=== PATIENT | female | born 1970 | race Caucasian/White ===

== ENCOUNTER 2016-09-08 15:43 | Emergency (ER) | END 2016-09-08 20:54 | disposition home or self-care (01) | DX: O20.0 Threatened abortion (principal); Z3A.01 Less than 8 weeks gestation of pregnancy; Z87.891 Personal history of nicotine dependence ==

== ENCOUNTER 2016-09-18 18:00 | Emergency (ER) | payer MEDICAID ==
[~2016-09-18] VITALS: Wt 80.0 kg
[~2016-09-18 18:00] MED LIST: ACET500C5 PO; CALC-649 PO; FERR27TA PO; LAMO150T15 PO; PREN1TAB49 PO
--- NOTE | 2016-09-18 20:08 | RADRPT ---
PROCEDURE: US OB. CLINICAL INDICATION: Vaginal bleeding TECHNIQUE: Transabdominal and transvaginal views of the pelvis are available for review. COMPARISON: 09/08/2016 FINDINGS: [place]-rump length:1.1 cm Mean gestational sac diameter is 1.8 cm. heart rate:None Ultrasound estimated gestational age:7 weeks and 0-day The right ovary measures 4 x 3.1 x 3.4 cm in size in the left ovary measures 2.4 x 1.9 x 2.4 cm in s ize. A complex cystic structure in the right ovary is seen measuring 3.1 cm in maximal diameter and is consistent with a hemorrhagic cyst which is once again seen. No ovarian or adnexal mass lesion is seen. There is no free fluid. IMPRESSION: 1. Single intrauterine without evidence of heart rate, the findings of which are wo rrisome for demise. Correlation with serial beta HCG levels is suggested as well as a short i nterval follow-up. 2. Complex right ovarian cystic structure consistent with a hemorrhagic cyst again seen. RPTAT: HPNM Physician Domingo Date Time Electronically viewed and signed by Physician Domingo on 09/18/2016 20:08 /
[2016-09-18 20:28] LABS: ADD UMIC YES; URINE BILIRUBIN (Dip) NEGATIVE (NEGATIVE); URINE BLOOD (Dip) 1+ (NEGATIVE); URINE COLOR LT. YELLOW (YELLOW); URINE GLUCOSE (Dip) NEGATIVE (NEGATIVE); URINE KETONES (Dip) NEGATIVE (NEGATIVE); URINE LEUKOCYTE ESTERASE (Dip) NEGATIVE (NEGATIVE); URINE NITRITE (Dip) NEGATIVE (NEGATIVE); URINE TOTAL PROTEIN (Dip) NEGATIVE (NEGATIVE); URINE UROBILINOGEN (Dip) 0.2 E.U./dL (0.1-1.0)
[2016-09-18 20:30] LABS: BASOPHIL # 0.1 10^3/ul (0.0-0.1); BASOPHILS % 0.5 % (0.0-2.0); EOSINOPHILS # 0.2 10^3/ul (0.0-0.5); EOSINOPHILS % 1.5 % (0.0-7.0); HEMATOCRIT 37.6 % (37.0-47.0); HEMOGLOBIN 12.3 g/dl (12.0-16.0); LYMPHOCYTES # 4.5 10^3/ul (0.8-2.9); LYMPHOCYTES % 31.4 % (15.0-51.0); MEAN CORPUSCULAR HGB CONC 32.7 g/dl (32.0-37.0); MEAN CORPUSCULAR VOLUME 76.6 fl (82.0-101.0); MEAN PLATELET VOLUME 9.1 fl (7.4-10.4); MONOCYTE # 0.9 10^3/ul (0.3-0.9); MONOCYTES % 6.3 % (0.0-11.0); NEUTROPHIL # 8.6 10^3/ul (1.6-7.5); NEUTROPHILS % 60.3 % (39.0-77.0); PLATELET COUNT 332 10^3/UL (140-440); RED BLOOD COUNT 4.91 10^6/ul (4.20-5.40); RED CELL DISTRIBUTION WIDTH 20.8 % (11.5-14.5); UNCORRECTED WBC 14.2 10^3/ul (4.8-10.8); WHITE BLOOD COUNT 14.2 10^3/ul (4.8-10.8)
[2016-09-18 20:31] LABS: CONDITION 1; LH ANALYZER COMMENTS 1
[2016-09-18 20:42] LABS: SQUAMOUS EPITHELIAL CELL,UR FEW
[2016-09-18 22:43] VITALS: BP 132/68; PULSE 77; RESP 18; TEMP 98.6
--- NOTE | 2016-09-18 22:55 | ERD ---
ER Documentation Chief Complaint Date/Time DATE: 09/18/16 TIME: 22:51 Chief Complaint VAG BLEEDING FOR 5 DAYS. MILD ABD PAIN. SCANT AMOUNT OF BLEEDING.NO DYSURIA HPI 45-year-old female with no significant past medical history is a presents to the ED complaining of hematuria that started 5 days ago. States that she went to her [facility] today, Dr. Swati Aguiar. Reports that there was no heart tones noted on the ultrasound. Patient was sent here for further evaluation. Patient was seen here previously on September 05 1316 for similar symptoms of slight vaginal bleeding. Patient denies any headache, loss of consciousness, dizziness, blurred vision, dysuria, urgency, frequency, flank pain, pelvic pain, nausea, vomiting, chest pain or shortness of breath. Patient 's last menses was on July 17, 2016. ROS All systems reviewed and are negative except as per history of present illness. Medications Home Meds Active Scripts Acetaminophen* (Tylophen*) 500 Mg Capsule, 1 CAP PO Q6H Y for PAIN AND OR ELEVATED TEMP, #20 CAP Prov:JC DINH 09/08/16 Reported Medications Lamotrigine* (Lamictal*) 150 Mg Tablet, 150 MG PO DAILY 05/04/11 Calcium Carbonate (Calcium) 1 Tab Tablet, 1 TAB PO DAILY 04/05/11 Ferrous Sulfate (Iron) 1 Tab Tablet, 1 TAB PO BID 04/05/11 Vits W-Ca,Fe,Fa(<1MG) () 1 Tab Tablet, 1 TAB PO 04/05/11 Allergies Allergies: Coded Allergies: No Known Allergy (Verified Allergy, 04/05/11) PMhx/Soc History of Surgery: No Anesthesia Reaction: No Hx Neurological Disorder: No Hx Respiratory Disorders: No Hx Cardiac Disorders: No Hx Psychiatric Problems: No Hx Miscellaneous Medical Probl: No (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 In no acute distress. Head: Atraumatic, normocephalic Eyes: Normal Conjunctiva without injection. No purulent discharge. ENT: Normal external ear, nose. Moist oropharynx without tonsillar exudates. Non -erythematous pharynx. Uvula midline. No drooling. No trismus. Neck: No cervical midline tenderness. Full range of motion. No meningismus. No cervical lymphadenopathy. No JVD. Resp: Clear to auscultation bilaterally. No wheezing, rhonchi, rales, or crackles. No accessory muscle use. No retractions. Cardio: Regular rate and rhythm. No murmurs, rubs or gallops. Abd: Soft, nontender to palpation, non distended. Normal bowel sounds. No palpable masses. No rebound tenderness. No guarding. Negative McBurney's point. Negative psoas sign. Negative obturator sign. Skin: No petechiae or rashes Back: No midline tenderness. No CVA tenderness. Ext: No cyanosis, or edema. Neur: Awake and alert. Normal gait. Normal coordination. Psych: Normal Mood and Affect Result Diagram: 09/18/162004 Results 24 hrs Laboratory Tests Test 09/18/16 20:05 09/18/16 20:12 Basophils # 0.110^3/ul Basophils % 0.5% Beta HCG, Quantitative 40475.0mIU/ml Blood Morphology Comment Eosinophils # 0.210^3/ul Eosinophils % 1.5% Hematocrit 37.6% Hemoglobin 12.3g/dl Lymphocytes # 4.510^3/ul Lymphocytes % 31.4% Mean Corpuscular Hemoglobin 25.0pg Mean Corpuscular Hemoglobin Concent 32.7g/dl Mean Corpuscular Volume 76.6fl Mean Platelet Volume 9.1fl Monocytes # 0.910^3/ul Monocytes % 6.3% Neutrophils # 8.610^3/ul Neutrophils % 60.3% Nucleated Red Blood Cells # 0.010^3/ul Nucleated Red Blood Cells % 0.0/100WBC Platelet Count 12341^3/UL Red Blood Count 4.9110^6/ul Red Cell Distribution Width 20.8% White Blood Count 14.210^3/ul Urine Bilirubin NEGATIVE Urine Clarity CLEAR Urine Color LT. YELLOW Urine Glucose NEGATIVE% Urine Hemoglobin 1+ Urine Ketones NEGATIVE Urine Leukocyte Esterase NEGATIVE Urine Microscopic RBC 2-5/HPF Urine Microscopic WBC 2-5/HPF Urine Nitrite NEGATIVE Urine Specific Mcallister 1.020 Urine Squamous Epithelial Cells FEW Urine Total Protein NEGATIVE Urine Urobilinogen 0.2 E.U./dL Urine pH 6.5 Procedures/MDM 45-year-old female with no significant past Julio history is a A0 presents to the ED complaining of hematuria and slight vaginal spotting. Patient is afebrile and nontoxic-appearing. Patient has normal vital signs. An ultrasound, beta-hCG, CBC, type and RH, UA was ordered to evaluate patient. CBC: No evidence of severe infection or anemia Urine: No elevation in nitrites, leukocyte esterase, hematuria. No evidence of UTI Rh: B positive. No indication for Rhogam at this time. beta Hc PROCEDURE: US OB. CLINICAL INDICATION: Vaginal bleeding TECHNIQUE: Transabdominal and transvaginal views of the pelvis are available for review. COMPARISON: 09/08/2016 FINDINGS: [place]-rump length: 1.1 cm Mean gestational sac diameter is 1.8 cm. heart rate: None Ultrasound estimated gestational age: 7 weeks and 0-day The right ovary measures 4 x 3.1 x 3.4 cm in size in the left ovary measures 2.4 x 1.9 x 2.4 cm in size. A complex cystic structure in the right ovary is seen measuring 3.1 cm in maximal diameter and is consistent with a hemorrhagic cyst which is once again seen. No ovarian or adnexal mass lesion is seen. There is no free fluid. IMPRESSION: 1. Single intrauterine without evidence of heart rate, the findings of which are worrisome for demise. Correlation with serial beta HCG levels is suggested as well as a short interval follow-up. 2. Complex right ovarian cystic structure consistent with a hemorrhagic cyst again seen. Patient's bleeding symptoms have stabilized while in the department. Patient likely has a demise noted on her ultrasound due to no heart rate noted. This is discussed with the patient. She understood the diagnosis. Her questions were answered. This case was discussed with the labor stone call, Dr. Joseph who stated that patient can follow-up with [facility] outpatient for a dilation and curettage. Low suspicion for symptomatic anemia, ectopic , sepsis, PID, appendicitis, ovarian torsion, tubo-ovarian abscess, surgical abdomen, or other emergent conditions. Patient was educated that there is a risk for threatened . Patient to follow up with [facility] in 2 days for further evaluation and treatment. Patient is to return sooner to the ED for any worsening symptoms. Patient's questions were answered. Patient understood and agreed with discharge plan. Departure Diagnosis: Primary Impression: demise Condition: Stable Patient Instructions: Miscarriage Referrals: [facility] YOU HAVE RECEIVED A MEDICAL SCREENING EXAM AND THE RESULTS INDICATE THAT YOU DO NOT HAVE A CONDITION THAT REQUIRES URGENT TREATMENT IN THE EMERGENCY DEPARTMENT. FURTHER EVALUATION AND TREATMENT OF YOUR CONDITION CAN WAIT UNTIL YOU ARE SEEN IN YOUR DOCTORS OFFICE WITHIN THE NEXT 1-2 DAYS. IT IS YOUR RESPONSIBILITY TO MAKE AN APPOINTMENT FOR FOLOW-UP CARE. IF YOU HAVE A PRIMARY DOCTOR --you should call your primary doctor and schedule an appointment IF YOU DO NOT HAVE A PRIMARY DOCTOR YOU CAN CALL OUR PHYSICIAN REFERRAL HOTLINE AT IF YOU CAN NOT AFFORD TO SEE A PHYSICIAN YOU CAN CHOSE FROM THE FOLLOWING [facility] [address] [facility] [address] [facility] [address] [facility] [address] [facility] [address] [facility]. [facility] [address] [facility] [facility] YOU HAVE RECEIVED A MEDICAL SCREENING EXAM AND THE RESULTS INDICATE THAT YOU DO NOT HAVE A CONDITION THAT REQUIRES URGENT TREATMENT IN THE EMERGENCY DEPARTMENT. FURTHER EVALUATION AND TREATMENT OF YOUR CONDITION CAN WAIT UNTIL YOU ARE SEEN IN YOUR DOCTORS OFFICE WITHIN THE NEXT 1-2 DAYS. IT IS YOUR RESPONSIBILITY TO MAKE AN APPOINTMENT FOR FOLOW-UP CARE. IF YOU HAVE A PRIMARY DOCTOR --you should call your primary doctor and schedule and appointment IF YOU DO NOT HAVE A PRIMARY DOCTOR YOU CAN CALL OUR PHYSICIAN REFERRAL HOTLINE AT . IF YOU CAN NOT AFFORD TO SEE A PHYSICIAN YOU CAN CHOSE FROM THE FOLLOWING [facility] INSTITUTIONS: [facility] [address] [place] [address] [facility] [address] [place] [address] [facility] [address] [place] [address] [facility] URGENT CARE/SPECIALTIES Additional Instructions: Seguimiento con ob / gas inspector maana para ms atencin y tratamiento Regrese a estas instalaciones si no se mejora joey esperbamos o joey le dijimos. CESIA YUEN PA-C Sep 18, 2016 22:55
== END 2016-09-18 22:44 | disposition home or self-care (01) ==
LOC: FTE 18:00
DX: O36.4XX0 Maternal care for intrauterine death, not applicable or unspecified (principal)
CPT/HCPCS: 36415; 76801; 76817; 81001; 81003; 84702; 85025; 86900; 86901